=== PATIENT | female | born 1995 | race Caucasian/White ===

== ENCOUNTER 2017-10-05 15:33 | Emergency (ER) | payer MEDICARE, OTHER ==
[~2017-10-05] VITALS: Ht 165.1 cm; Wt 61.0 kg
[2017-10-05 15:37] VITALS: BP 109/57; PULSE 86; RESP 16; TEMP 98.5; O2SAT 97
[2017-10-05] MEDS ORDERED: ACETAMINOPHEN/HYDROcodone 325 MG/5 MG TAB PO ONE (16:00)
--- NOTE | 2017-10-05 16:07 | RADRPT ---
EXAM DATE/TIME: 10/05/2017 15:51 [place] COMPARISON: No previous studies available for comparison. INDICATIONS : Right knee pain post fall. MEDICAL HISTORY : None. SURGICAL HISTORY : None. ENCOUNTER: Initial ACUITY: 1 day PAIN SCORE: 7/10 LOCATION: Right knee. FINDINGS: Four view examination of the right knee demonstrates no evidence of fracture or dislocation. Bony mi neralization is normal. The articular surfaces are intact. The suprapatellar soft tissues have a no rmal configuration. CONCLUSION: Unremarkable examination of the right knee. Joss Treviño MD on October 05, 2017 at 16:04 Board Certified Radiologist. This report was verified electronically.
[2017-10-05] MEDS ORDERED: TRAM50TA PO (16:20)
[2017-10-05] MEDS ORDERED: DICL75TA PO (16:20)
--- NOTE | 2017-10-05 16:33 | PD ---
HPI Chief Complaint: Injury Time Seen by Provider: 15:44 Travel History International Travel<30 days: No Contact w/Intl Traveler<30days: No Traveled to known affect area: No History of Present Illness HPI 22-year-old female that presents to the ED for evaluation of right knee injury after tripping falling on the knee. Per patient she has a lot of pain with any movement of the knee as well as weightbearing. This happened less than an hour before coming. No previous surgeries to the knee but she states that she did have an ACL injury but she never had surgery for it. She denies any other medical issues. No head injury. Pain per patient is 8 out of 10 and gets worse with any movement or touch. No numbness, tilling, weakness. Has not seen anybody for this. Patient does have bruising and swelling on the anterior aspect of the knee. PFSH Past Medical History Bipolar Disorder: Yes Anxiety: Yes Depression: Yes Diminished Hearing: No Headaches: Yes Neurologic: Yes Psychiatric: Yes (ANXIETY,DEPRESSION) Respiratory: Yes Immunizations Current: Yes Tetanus Vaccination: Unknown Influenza Vaccination: No ?: Not LMP: 08/31/17 ? : 1 Para: 1 Past Surgical History Abdominal Surgery: Yes Section: Yes Social History Alcohol Use: No Tobacco Use: Yes (Occ.) Substance Use: No (Denies today) Allergies-Medications (Allergen,Severity, Reaction): Coded Allergies: cefuroxime (Unverified Allergy, Severe, Rash, 10/05/17) Reported Meds & Prescriptions Reported Meds & Active Scripts Active Tramadol (Tramadol HCl) 50 Mg Tab 50 Mg PO Q6H PRN Diclofenac Sodium DR (Diclofenac Sodium) 75 Mg Tabdr 75 Mg PO BID PRN Review of Systems Except as stated in HPI: all other systems reviewed are Neg Physical Exam Narrative GENERAL: SKIN: Warm and dry. HEAD: Atraumatic. Normocephalic. EYES: Pupils equal and round. No scleral icterus. No injection or drainage. ENT: No nasal bleeding or discharge. Mucous membranes pink and moist. NECK: Trachea midline. No JVD. CARDIOVASCULAR: Regular rate and rhythm. RESPIRATORY: No accessory muscle use. Clear to auscultation. Breath sounds equal bilaterally. GASTROINTESTINAL: Abdomen soft, non-tender, nondistended. Hepatic and splenic margins not palpable. MUSCULOSKELETAL: Extremities without clubbing, cyanosis, or edema. No obvious deformities. Full range of motion of the upper and lower extremity is bilaterally. 2+ pulses bilaterally. Patient has bruising and swelling noted anterior aspect of the knee. Pain with flexion and better with extension. Sensation intact bilaterally. No lumbar, thoracic, cervical spine tenderness to palpation. NEUROLOGICAL: Awake and alert. No obvious cranial nerve deficits. Motor grossly within normal limits. Five out of 5 muscle strength in the arms and legs. Normal speech. PSYCHIATRIC: Appropriate mood and affect; insight and judgment normal. Data Data Last Documented VS Vital Signs Date Time Temp Pulse Resp B/P (MAP) Pulse Ox O2 Delivery O2 Flow Rate FiO2 10/05/17 15:37 98.5 86 16 109/57 (74) 97 Orders Orders Knee, Complete (4vws) (10/05/17 ) Acetamin-Hydrocod 325-5 Mg ([place] 5-325 (10/05/17 16:00) Ed Discharge Order (10/05/17 16:29) Splint Or Brace Apply/Monitor (10/05/17 16:29) [facility] [place] Medical Decision Making Medical Screen Exam Complete: Yes Emergency Medical Condition: Yes Medical Record Reviewed: Yes Interpretation(s) xray showed no sign of bony injury per radiology report. Differential Diagnosis Fracture versus bruise versus contusion versus sprain Narrative Course 22-year-old female that presents to the ED for evaluation of right knee injury. Patient was properly examined and was found to have signs and symptoms concerning for fracture. X-rays were done. X-rays were negative for acute bony injury. Patient was reassured. Patient was given pain medication here. Given prescription for pain medication. Given crmigel Harry. Told to follow with PCP. See ED worsening symptoms. Ice or warm compresses. Diagnosis Primary Impression: Contusion of knee, right Qualified Codes: S80.01XA - Contusion of right knee, initial encounter Patient Instructions: General Instructions, Narcotic given in the ED Departure Forms: Tests/Procedures Additional Instructions: Take medications as prescribed. Follow-up with PCP. See ED for any worsening symptoms. Do not drink or drive while taking pain medication. Apply ice or heat as needed for pain Med/Other Pt SpecificInfo: Prescription(s) given Scripts Tramadol (Tramadol) 50 Mg Tab 50 MG PO Q6H Y for PAIN, #12 TAB 0 Refills Prov: Samia Hinojosa MD 10/05/[address] (Diclofenac Sodium DR) 75 Mg Tabdr 75 MG PO BID Y for PAIN SCALE 1 TO 10, #20 TAB 0 Refills Prov: Samia Hinojosa MD 10/05/17 Disposition: 01 DISCHARGE HOME Condition: Shreyas Wrya Oct 05, 2017 16:33
== END 2017-10-05 16:50 | disposition home or self-care (01) ==
LOC: PHEFT 15:33
DX: S80.01XA Contusion of right knee, initial encounter (principal); W01.0XXA Fall on same level from slipping, tripping and stumbling without subsequent striking against object, initial encounter; F31.9 Bipolar disorder, unspecified; F41.9 Anxiety disorder, unspecified
CPT/HCPCS: 73564; 99283; E0113; L1830

== ENCOUNTER 2017-12-06 23:48 | Emergency (ER) | payer MEDICARE, MEDICAID ==
[~2017-12-06] VITALS: Ht 154.9 cm; Wt 59.1 kg
[~2017-12-06 23:48] MED LIST: DICL75TA PO; TRAM50TA PO
[2017-12-06 23:56] VITALS: BP 150/74; PULSE 100; RESP 20; TEMP 98.3; O2SAT 100
--- NOTE | 2017-12-07 00:23 | PD ---
HPI . Back pain Chief Complaint: Musculoskeletal Complaint Time Seen by Provider: 00:06 Travel History International Travel<30 days: No Contact w/Intl Traveler<30days: No Traveled to known affect area: No History of Present Illness HPI Patient comes in with atraumatic low back pain for 3 days. She has been taking ibuprofen without relief of her pain. She denies fever. She denies any radicular symptoms. She denies any perineal anesthesia or bowel/bladder overflow incontinence. She reports a history of chronic back pain. Her back pain is exacerbated by working. Of note, this patient is . PFSH Past Medical History Bipolar Disorder: Yes Anxiety: Yes Depression: Yes Diminished Hearing: No Gastrointestinal Disorders: Yes (vomiting at home prior to admit) Headaches: Yes Neurologic: Yes Psychiatric: Yes (ANXIETY,DEPRESSION) Respiratory: Yes Immunizations Current: Yes Influenza Vaccination: No ?: LMP: 10/12/17 : 1 Para: 1 Past Surgical History Abdominal Surgery: Yes Section: Yes (2X) Social History Alcohol Use: No Tobacco Use: Yes (2 cigarettes/daily) Substance Use: No (Denies today) Allergies-Medications (Allergen,Severity, Reaction): Coded Allergies: cefuroxime (Unverified Allergy, Severe, Rash, 12/07/17) Reported Meds & Prescriptions Reported Meds & Active Scripts Active Tramadol (Tramadol HCl) 50 Mg Tab 50 Mg PO Q6H PRN Diclofenac Sodium DR (Diclofenac Sodium) 75 Mg Tabdr 75 Mg PO BID PRN Review of Systems Except as stated in HPI: all other systems reviewed are Neg Physical Exam Narrative GENERAL: Awake and alert and in no acute distress. SKIN: Warm and dry. HEAD: Normocephalic/atraumatic. EYES: Pupils are equal. Extraocular movements are intact. NECK: Normal range of motion. CARDIOVASCULAR: Regular rate and rhythm. RESPIRATORY: Nonlabored respirations. MUSCULOSKELETAL: Diffuse low back tenderness with no point tenderness. Straight leg raise bilaterally is negative. Distally neurologically intact. She is noted to have a normal gait. NEUROLOGICAL: Nonfocal. PSYCHIATRIC: Appropriate mood and affect. Data Data Last Documented VS Vital Signs Date Time Temp Pulse Resp B/P (MAP) Pulse Ox O2 Delivery O2 Flow Rate FiO2 12/07/17 00:11 18 12/06/17 23:56 98.3 100 150/74 (99) 100 Orders Orders Acetaminophen (Tylenol) (12/07/17 00:30) Ed Discharge Order (12/07/17 00:18) MDM Medical Decision Making Medical Screen Exam Complete: Yes Emergency Medical Condition: Yes Differential Diagnosis Differential diagnosis includes but is not limited to muscular low back pain, DDD, spinal stenosis, epidural abscess, sciatica, kidney infection or stone. Narrative Course This patient presents complaining with acute exacerbation of chronic low back pain. She is . I have advised her to treat her back pain with ice and/ or heat as well as Tylenol. She has been told to avoid nonsteroidal anti- inflammatory agents because she is . Diagnosis Primary Impression: Back pain Qualified Codes: M54.5 - Low back pain Patient Instructions: General Instructions Departure Forms: Tests/Procedures Additional Instructions: Ice to back for pain control. Tylenol as needed for pain. No aspirin, ibuprofen or Aleve--they are bad for the baby. Disposition: 01 DISCHARGE HOME Condition: Stable Adele Cormier MD December 07, 2017 00:23
[2017-12-07] MEDS ORDERED: ACETAMINOPHEN 325 MG TAB PO ONE (00:30)
[2017-12-07 00:34] VITALS: BP 128/81
== END 2017-12-07 00:44 | disposition home or self-care (01) ==
LOC: PHED 23:48
DX: O99.89 Other specified diseases and conditions complicating pregnancy, childbirth and the puerperium (principal); M54.5 Low back pain; O99.350 Diseases of the nervous system complicating pregnancy, unspecified trimester; G89.29 Other chronic pain; O99.340 Other mental disorders complicating pregnancy, unspecified trimester; F31.9 Bipolar disorder, unspecified; F41.9 Anxiety disorder, unspecified; O99.330 Smoking (tobacco) complicating pregnancy, unspecified trimester; F17.210 Nicotine dependence, cigarettes, uncomplicated
CPT/HCPCS: 99281